=== PATIENT | female | born 1945 | race Caucasian/White ===

== ENCOUNTER → 2016-12-17 | Outpatient (CLI) | payer MEDICARE ==
[~2016-12-17] MED LIST: OMNIPAQUE 350 MG/ML, 100ML BOTTLE ONE
== END | disposition home or self-care (01) ==
LOC: CFH 11:14
PROVIDERS: ATTEND Obstetrics & Gynecology Maternal & Fetal Medicine
DX: J90 Pleural effusion, not elsewhere classified (principal); M51.04 Intervertebral disc disorders with myelopathy, thoracic region; N85.2 Hypertrophy of uterus; R59.9 Enlarged lymph nodes, unspecified; N28.1 Cyst of kidney, acquired; Z85.850 Personal history of malignant neoplasm of thyroid
CPT/HCPCS: 71260; 74177; 82565; Q9967

== ENCOUNTER 2017-01-09 12:32 | Inpatient (IN) | payer MEDICARE ==
[~2017-01-09] VITALS: Ht 162.6 cm; Wt 67.7 kg
[~2017-01-09 12:32] MED LIST changes: +ASPI-650 PO; +ATEN25TA PO; +ATOR40TA78 PO; +CALC1CAP8 PO; +CELE200C PO; +CHOL10002 PO; +CYAN1TAB29 PO; +FLEC100T PO; +GLUC1TAB35 PO; +KRIL1CAP PO; +LEVO125T PO; +LISI-167 PO; +LORA0.5T PO; +MULT-658 PO; +OMEP-110 PO; -OMNIPAQUE 350 MG/ML, 100ML BOTTLE ONE; +ONDA4TAB10 PO; +OXYC1TAB8 PO; +VITA400C43 PO
[2017-01-09] MEDS ORDERED: SODIUM CHLORIDE 0.9%, 250ML IVBOLUS ONE (13:30)
[2017-01-09] MEDS ORDERED: SODIUM CHLORIDE FLUSH 10ML SYR IVF ONE (13:30)
[2017-01-09 13:38] LABS: HEMATOCRIT 25.4 % (34.6-47.8); HEMOGLOBIN 8.3 g/dL (11.7-16.4); WHITE BLOOD COUNT 24.2 x10^3/uL (3.4-10)
[2017-01-09 13:48] LABS: BLOOD UREA NITROGEN 53 mg/dL (7-18)
[2017-01-09 13:55] LABS: ASPARTATE AMINO TRANSFERASE 968 U/L (15-37)
[2017-01-09 14:00] LABS: IS PT STATUS REG ER OR PRE ER? YES
[2017-01-09] MEDS ORDERED: CEFTRIAXONE PMX 1GM/50ML 50 ML IV ONE (14:00)
[2017-01-09 14:03] LABS: DIFF TOTAL CELLS COUNTED 100 CELL DIFF
[2017-01-09 14:06] LABS: ANISOCYTOSIS 1+; VERIFY COUNTS? YES
[2017-01-09 14:07] LABS: HYPOCHROMIA 1+; OVALOCYTES 1+; POIKILOCYTOSIS 1+
[2017-01-09 14:08] LABS: POLYCHROMASIA 2+
[2017-01-09] MEDS ORDERED: CEFTRIAXONE PMX 1GM/50ML 50 ML ONE (14:42)
[2017-01-09 16:29] VITALS: BP 110/65
[2017-01-09] MEDS ORDERED: LIDOCAINE 1%, 20ML ONE (16:51)
[2017-01-09] MEDS ORDERED: ONDANSETRON 2MG/ML, 2ML IVPush PRN (17:00)
[2017-01-09] MEDS ORDERED: ZOLPIDEM 5MG TABLET PO PRN (17:00)
[2017-01-09] MEDS ORDERED: hydrALAzine 20 MG/ML, 1ML IVPush PRN (17:00)
[2017-01-09] MEDS ORDERED: OXYcodone/APAP 7.5/325MG TABLET PO PRN (17:00)
[2017-01-09] MEDS ORDERED: BISACODYL 10 MG SUPP PR PRN (17:00)
[2017-01-09] MEDS ORDERED: DOCUSATE 100 MG CAPSULE PO PRN (17:00)
[2017-01-09] MEDS ORDERED: ONDANSETRON ODT 4 MG PO PRN (17:00)
[2017-01-09] MEDS ORDERED: POLYETHYLENE GLYCOL 17 GM PACKET PO PRN (17:00)
[2017-01-09 17:45] LABS: CYTOLOGY BODY FLUID RECD INTO PATHOLOGY; CYTOLOGY BODY FLUID SOURCE PLEURAL FLUID
[2017-01-09] MEDS: NS + 20MEQ KCL 1,000 ML IV SCH (17:45)
[2017-01-09] MEDS: HEPARIN 5,000 UNITS/ML, 1ML SQ SCH (17:46)
[2017-01-09] MEDS: AZITHROMYCIN 500 MG in SODIUM CHLORIDE 0.9% 250 ML IV SCH (17:46)
[2017-01-09 18:15] VITALS: BP 107/59
[2017-01-09 18:27] LABS: IS PT STATUS REG ER OR PRE ER? YES
[2017-01-09] MEDS: HYDROcodone/APAP 5/325 TABLET PO PRN (18:34)
[2017-01-09 19:54] VITALS: BP 98/62
[2017-01-09 19:57] VITALS: BP 90/58
[2017-01-09 20:02] VITALS: BP 96/61
[2017-01-09] MEDS: FLECAINIDE 100MG TABLET PO SCH (20:19)
[2017-01-09] MEDS: ATORVASTATIN 40 MG TABLET PO SCH (20:27)
[2017-01-09 20:33] LABS: POTASSIUM,URINE RANDOM 88 mmol/L
[2017-01-09 23:12] LABS: IS PT STATUS REG ER OR PRE ER? NO
[2017-01-10 01:11] VITALS: BP 107/66
[2017-01-10] MEDS: HEPARIN 5,000 UNITS/ML, 1ML SQ SCH ×2 (01:17→09:22)
[2017-01-10] MEDS: CEFTRIAXONE 1,000 MG in SODIUM CHLORIDE 0.9% 50 ML IV SCH ×2 (03:27→14:17)
[2017-01-10 05:13] LABS: HEMATOCRIT 23.8 % (34.6-47.8); HEMOGLOBIN 7.7 g/dL (11.7-16.4)
[2017-01-10 05:19] LABS: BLOOD UREA NITROGEN 47 mg/dL (7-18)
[2017-01-10] MEDS: NS + 20MEQ KCL 1,000 ML IV SCH ×2 (05:37→17:11)
[2017-01-10] MEDS: LEVOTHYROXINE 125 MCG TABLET PO SCH (05:38)
[2017-01-10 09:19] VITALS: BP 94/59
[2017-01-10] MEDS: PANTOPROZOLE 40MG TABLET PO SCH (09:21)
[2017-01-10] MEDS: MULTIVITAMIN 1 TABLET PO SCH (09:21)
[2017-01-10] MEDS: FLECAINIDE 100MG TABLET PO SCH ×2 (09:21→21:17)
[2017-01-10] MEDS: ASPIRIN 325 MG TABLET EC PO SCH (09:21)
[2017-01-10] MEDS: CHOLECALCIFEROL 1,000 UNIT TABLET PO SCH (09:21)
[2017-01-10] MEDS: HEPARIN 25,000 UNITS/500ML PMX 500 ML IV PRN (14:06)
[2017-01-10 14:25] VITALS: BP 107/66
[2017-01-10] MEDS: AZITHROMYCIN 500 MG in SODIUM CHLORIDE 0.9% 250 ML IV SCH (16:55)
[2017-01-10 19:59] VITALS: BP 100/68
[2017-01-10] MEDS: ATORVASTATIN 40 MG TABLET PO SCH (21:18)
[2017-01-10] MEDS: HEPARIN 5,000 UNITS/ML, 1ML IV PRN (21:21)
[2017-01-11 01:45] VITALS: BP 104/55
[2017-01-11] MEDS ORDERED: CEFTRIAXONE 1,000 MG in DEXTROSE 5% 50 ML IV SCH (03:00)
[2017-01-11] MEDS: NS + 20MEQ KCL 1,000 ML IV SCH ×2 (03:20→14:33)
[2017-01-11] MEDS: LEVOTHYROXINE 125 MCG TABLET PO SCH (06:14)
[2017-01-11 07:22] VITALS: BP 129/76
[2017-01-11] MEDS: ASPIRIN 325 MG TABLET EC PO SCH (08:16)
[2017-01-11] MEDS: CHOLECALCIFEROL 1,000 UNIT TABLET PO SCH (08:16)
[2017-01-11] MEDS: PANTOPROZOLE 40MG TABLET PO SCH (08:16)
[2017-01-11] MEDS: FLECAINIDE 100MG TABLET PO SCH ×2 (08:16→20:46)
[2017-01-11] MEDS: MULTIVITAMIN 1 TABLET PO SCH (08:16)
[2017-01-11] MEDS ORDERED: FUROSEMIDE 40 MG/4 ML ONE (09:05)
[2017-01-11 09:10] VITALS: BP 123/77
[2017-01-11] MEDS ORDERED: FUROSEMIDE 40 MG/4 ML IV ONE (09:30)
[2017-01-11 09:51] LABS: BLOOD UREA NITROGEN 32 mg/dL (7-18)
[2017-01-11 10:03] LABS: HEMATOCRIT 28.6 % (34.6-47.8); HEMOGLOBIN 9.1 g/dL (11.7-16.4); WHITE BLOOD COUNT 19.3 x10^3/uL (3.4-10)
[2017-01-11 10:39] LABS: DIFF TOTAL CELLS COUNTED 100 CELL DIFF
[2017-01-11 10:40] LABS: ANISOCYTOSIS 1+; HYPOCHROMIA 1+; LARGE PLATELETS 1+; OVALOCYTES 1+; POIKILOCYTOSIS 1+; VERIFY COUNTS? YES
[2017-01-11] MEDS ORDERED: VANCOMYCIN 1,400 MG in SODIUM CHLORIDE 0.9% 250 ML IV SCH (12:30)
[2017-01-11] MEDS ORDERED: VANCOMYCIN PER PHARMACY MC PRN (12:30)
[2017-01-11] MEDS ORDERED: PHARMACOKINETIC CONSULTATION MC ONE (12:30)
[2017-01-11] MEDS ORDERED: PHARMACOKINETIC MONITORING MC PRN (12:30)
[2017-01-11] MEDS ORDERED: LIDOCAINE 2%, 20ML ONE (12:33)
[2017-01-11 13:54] VITALS: BP 99/60
[2017-01-11] MEDS: HEPARIN 25,000 UNITS/500ML PMX 500 ML IV PRN (14:36)
[2017-01-11 19:18] VITALS: BP 149/79
[2017-01-11] MEDS: ATORVASTATIN 40 MG TABLET PO SCH (20:46)
[2017-01-11] MEDS: LORazepam 0.5MG TABLET PO PRN (20:46)
[2017-01-12 00:56] VITALS: BP 120/67
[2017-01-12] MEDS: NS + 20MEQ KCL 1,000 ML IV SCH (02:58)
[2017-01-12] MEDS: LEVOTHYROXINE 125 MCG TABLET PO SCH (05:10)
[2017-01-12 05:42] LABS: HEMATOCRIT 29.9 % (34.6-47.8); HEMOGLOBIN 9.6 g/dL (11.7-16.4); WHITE BLOOD COUNT 20.3 x10^3/uL (3.4-10)
[2017-01-12 05:54] LABS: BLOOD UREA NITROGEN 25 mg/dL (7-18)
[2017-01-12 06:17] LABS: DIFF TOTAL CELLS COUNTED 100 CELL DIFF
[2017-01-12 06:18] LABS: ANISOCYTOSIS 1+; HYPOCHROMIA 1+; VERIFY COUNTS? YES
[2017-01-12 06:38] VITALS: BP 149/77
[2017-01-12] MEDS: ASPIRIN 325 MG TABLET EC PO SCH (09:00)
[2017-01-12] MEDS: CHOLECALCIFEROL 1,000 UNIT TABLET PO SCH (09:00)
[2017-01-12] MEDS: MULTIVITAMIN 1 TABLET PO SCH (09:00)
[2017-01-12] MEDS: PANTOPROZOLE 40MG TABLET PO SCH (09:00)
[2017-01-12] MEDS: FLECAINIDE 100MG TABLET PO SCH ×2 (09:01→20:20)
[2017-01-12] MEDS ORDERED: OMNIPAQUE 350 MG/ML, 100ML BOTTLE ONE (10:59)
[2017-01-12] MEDS: AZTREONAM IV SCH ×2 (12:09→20:20)
[2017-01-12] MEDS: DEXTROSE 5% IV SCH ×2 (12:09→20:20)
[2017-01-12] MEDS: SODIUM CHLORIDE 0.9% 1,000 ML IV SCH (12:10)
[2017-01-12 12:19] VITALS: BP 132/87
[2017-01-12] MEDS: VANCOMYCIN 1,200 MG in SODIUM CHLORIDE 0.9% 250 ML IV SCH (13:55)
[2017-01-12] MEDS ORDERED: LIDOCAINE 2%, 20ML ONE (14:21)
[2017-01-12] MEDS: HEPARIN 25,000 UNITS/500ML PMX 500 ML IV PRN (17:42)
[2017-01-12 19:08] VITALS: BP 123/71
[2017-01-12] MEDS: ATORVASTATIN 40 MG TABLET PO SCH (20:20)
[2017-01-12] MEDS: LORazepam 0.5MG TABLET PO PRN (20:27)
[2017-01-12] MEDS: HYDROcodone/APAP 5/325 TABLET PO PRN (20:59)
[2017-01-12] MEDS: ONDANSETRON ODT 4 MG PO PRN (20:59)
[2017-01-13 01:08] VITALS: BP 169/84
[2017-01-13] MEDS: HYDROcodone/APAP 5/325 TABLET PO PRN (03:10)
[2017-01-13] MEDS: ONDANSETRON ODT 4 MG PO PRN (03:15)
[2017-01-13] MEDS: SODIUM CHLORIDE 0.9% 1,000 ML IV SCH ×2 (04:09→19:50)
[2017-01-13] MEDS: DEXTROSE 5% IV SCH ×3 (04:09→20:34)
[2017-01-13] MEDS: AZTREONAM IV SCH ×3 (04:09→20:34)
[2017-01-13 05:40] LABS: HEMATOCRIT 30.1 % (34.6-47.8); HEMOGLOBIN 9.7 g/dL (11.7-16.4); WHITE BLOOD COUNT 16.5 x10^3/uL (3.4-10)
[2017-01-13 05:48] LABS: BLOOD UREA NITROGEN 17 mg/dL (7-18)
[2017-01-13] MEDS: HEPARIN 5,000 UNITS/ML, 1ML IV PRN (06:06)
[2017-01-13] MEDS: PANTOPROZOLE 40MG TABLET PO SCH (07:30)
[2017-01-13 07:35] VITALS: BP 145/85
[2017-01-13] MEDS: LEVOTHYROXINE 125 MCG TABLET PO SCH (08:00)
[2017-01-13] MEDS ORDERED: CETACAINE 50ML TP ONE (08:00)
[2017-01-13] MEDS: FLECAINIDE 100MG TABLET PO SCH ×2 (08:30→20:25)
[2017-01-13] MEDS: MULTIVITAMIN 1 TABLET PO SCH (09:00)
[2017-01-13] MEDS ORDERED: FAMOTIDINE 20 MG/2 ML IVPush SCH (09:00)
[2017-01-13] MEDS: CHOLECALCIFEROL 1,000 UNIT TABLET PO SCH (09:00)
[2017-01-13 14:30] VITALS: BP 165/91
[2017-01-13] MEDS: VANCOMYCIN 1,200 MG in SODIUM CHLORIDE 0.9% 250 ML IV SCH (14:52)
[2017-01-13 19:01] VITALS: BP 160/89
[2017-01-13] MEDS: HEPARIN 25,000 UNITS/500ML PMX 500 ML IV PRN (19:46)
[2017-01-13] MEDS: ATORVASTATIN 40 MG TABLET PO SCH (20:24)
[2017-01-13] MEDS: FAMOTIDINE 20 MG TABLET PO SCH (20:35)
[2017-01-14 00:26] VITALS: BP 151/83
[2017-01-14] MEDS: DEXTROSE 5% IV SCH ×3 (04:29→20:25)
[2017-01-14] MEDS: AZTREONAM IV SCH ×3 (04:29→20:25)
[2017-01-14 04:56] LABS: HEMATOCRIT 31.5 % (34.6-47.8); HEMOGLOBIN 10.1 g/dL (11.7-16.4); WHITE BLOOD COUNT 15.8 x10^3/uL (3.4-10)
[2017-01-14 05:07] LABS: BLOOD UREA NITROGEN 14 mg/dL (7-18)
[2017-01-14] MEDS: LEVOTHYROXINE 125 MCG TABLET PO SCH (05:46)
[2017-01-14] MEDS: PANTOPROZOLE 40MG TABLET PO SCH (07:30)
[2017-01-14 08:05] VITALS: BP 154/83
[2017-01-14] MEDS: FLECAINIDE 100MG TABLET PO SCH ×2 (08:30→20:30)
[2017-01-14] MEDS: MULTIVITAMIN 1 TABLET PO SCH (09:00)
[2017-01-14] MEDS: CHOLECALCIFEROL 1,000 UNIT TABLET PO SCH (09:00)
[2017-01-14] MEDS: FAMOTIDINE 20 MG TABLET PO SCH (09:00)
[2017-01-14] MEDS: SODIUM CHLORIDE 0.9% 1,000 ML IV SCH (09:05)
[2017-01-14] MEDS: VANCOMYCIN 1,200 MG in SODIUM CHLORIDE 0.9% 250 ML IV SCH (14:05)
[2017-01-14 14:30] VITALS: BP 127/76
[2017-01-14 19:04] VITALS: BP 146/81
[2017-01-14] MEDS: HEPARIN 25,000 UNITS/500ML PMX 500 ML IV PRN (20:27)
[2017-01-14] MEDS: ATORVASTATIN 40 MG TABLET PO SCH (20:32)
[2017-01-14] MEDS ORDERED: FAMOTIDINE 20 MG TABLET PO SCH (21:00)
[2017-01-14 23:16] VITALS: BP 119/70
[2017-01-14] MEDS ORDERED: FILTER 0.22 MICRON IV PRN (23:30)
[2017-01-14] MEDS ORDERED: AMIODARONE 150 MG in DEXTROSE 5% 100 ML IV ONE (23:30)
[2017-01-14] MEDS: AMIODARONE 900 MG in DEXTROSE 5% 482 ML IV PRN (23:42)
[2017-01-14 23:52] VITALS: BP 101/52
[2017-01-15 00:29] VITALS: BP 104/62
[2017-01-15 01:03] VITALS: BP 111/68
[2017-01-15 03:05] LABS: HEMATOCRIT 28.6 % (34.6-47.8); HEMOGLOBIN 9.2 g/dL (11.7-16.4); WHITE BLOOD COUNT 13.9 x10^3/uL (3.4-10)
[2017-01-15 03:13] LABS: BLOOD UREA NITROGEN 12 mg/dL (7-18)
[2017-01-15] MEDS: SODIUM CHLORIDE 0.9% 1,000 ML IV SCH ×2 (03:42→20:00)
[2017-01-15] MEDS: AZTREONAM IV SCH ×3 (03:43→21:30)
[2017-01-15] MEDS: DEXTROSE 5% IV SCH ×3 (03:43→21:30)
[2017-01-15] MEDS: LEVOTHYROXINE 125 MCG TABLET PO SCH (06:00)
[2017-01-15] MEDS: FLECAINIDE 100MG TABLET PO SCH ×2 (08:05→20:30)
[2017-01-15] MEDS: MULTIVITAMIN 1 TABLET PO SCH (08:05)
[2017-01-15] MEDS: CHOLECALCIFEROL 1,000 UNIT TABLET PO SCH (08:05)
[2017-01-15] MEDS: PANTOPRAZOLE 40 MG IV IVPush SCH (09:38)
[2017-01-15 09:58] VITALS: BP 101/71
[2017-01-15 13:53] VITALS: BP 114/78
[2017-01-15] MEDS ORDERED: LEVOTHYROXINE 25 MCG TABLET PO SCH (14:00)
[2017-01-15] MEDS ORDERED: AMIODARONE 150 MG in DEXTROSE 5% 100 ML IV ONE (14:30)
[2017-01-15] MEDS ORDERED: SODIUM CHLORIDE 0.9%, 250ML IVBOLUS ONE (16:30)
[2017-01-15] MEDS: LEVOTHYROXINE 100 MCG INJ IVPush SCH (17:11)
[2017-01-15] MEDS: VANCOMYCIN 1,200 MG in SODIUM CHLORIDE 0.9% 250 ML IV SCH (17:15)
[2017-01-15] MEDS ORDERED: FILTER 0.22 MICRON IV PRN (18:30)
[2017-01-15] MEDS: HEPARIN 25,000 UNITS/500ML PMX 500 ML IV PRN (18:37)
[2017-01-15] MEDS: AMIODARONE 900 MG in DEXTROSE 5% 482 ML IV PRN (18:38)
[2017-01-15 20:38] VITALS: BP 162/84
[2017-01-15] MEDS: ATORVASTATIN 40 MG TABLET PO SCH (21:00)
[2017-01-16 00:38] VITALS: BP 144/82
[2017-01-16 05:08] LABS: WHITE BLOOD COUNT 11.3 x10^3/uL (3.4-10)
[2017-01-16 05:20] LABS: BLOOD UREA NITROGEN 11 mg/dL (7-18)
[2017-01-16] MEDS: LEVOTHYROXINE 125 MCG TABLET PO SCH (06:00)
[2017-01-16] MEDS: AZTREONAM IV SCH ×3 (06:45→22:34)
[2017-01-16] MEDS: DEXTROSE 5% IV SCH ×3 (06:45→22:34)
[2017-01-16] MEDS ORDERED: POTASSIUM CHLORIDE 40 MEQ in SODIUM CHLORIDE 0.9% 100 ML IV ONE (07:30)
[2017-01-16 08:11] VITALS: BP 153/77
[2017-01-16] MEDS: FLECAINIDE 100MG TABLET PO SCH (08:30)
[2017-01-16] MEDS: PANTOPRAZOLE 40 MG IV IVPush SCH (09:00)
[2017-01-16] MEDS ORDERED: LEVOTHYROXINE 100 MCG INJ IVPush SCH (09:00)
[2017-01-16] MEDS: CHOLECALCIFEROL 1,000 UNIT TABLET PO SCH (09:00)
[2017-01-16] MEDS: LEVOTHYROXINE 100 MCG INJ IVPush SCH (09:00)
[2017-01-16] MEDS: MULTIVITAMIN 1 TABLET PO SCH (09:00)
[2017-01-16] MEDS ORDERED: ALBUMIN HUMAN 25% 100 ML IV ONE (12:30)
[2017-01-16] MEDS ORDERED: FUROSEMIDE 20 MG/2 ML IV ONE (12:30)
[2017-01-16 14:37] VITALS: BP 166/92
[2017-01-16] MEDS: SODIUM CHLORIDE 0.9% 1,000 ML IV SCH (15:12)
[2017-01-16] MEDS: VANCOMYCIN 1,200 MG in SODIUM CHLORIDE 0.9% 250 ML IV SCH (16:08)
[2017-01-16 19:40] VITALS: BP 150/85
[2017-01-16] MEDS: HEPARIN 25,000 UNITS/500ML PMX 500 ML IV PRN (21:29)
[2017-01-16] MEDS: ATORVASTATIN 40 MG TABLET PO SCH (22:51)
[2017-01-17] MEDS: POTASSIUM CHLORIDE 20 MEQ TAB.ER.PRT PO SCH ×2 (01:08→09:50)
[2017-01-17 01:12] VITALS: BP 156/85
[2017-01-17] MEDS: AMIODARONE 900 MG in DEXTROSE 5% 482 ML IV PRN (03:58)
[2017-01-17] MEDS: DEXTROSE 5% IV SCH ×3 (06:17→21:20)
[2017-01-17] MEDS: AZTREONAM IV SCH ×3 (06:17→21:20)
[2017-01-17] MEDS: LEVOTHYROXINE 125 MCG TABLET PO SCH (06:17)
[2017-01-17 06:32] LABS: HEMATOCRIT 27.6 % (34.6-47.8)
[2017-01-17 06:38] VITALS: BP 166/78
[2017-01-17 06:44] LABS: BLOOD UREA NITROGEN 8 mg/dL (7-18)
[2017-01-17] MEDS: PANTOPRAZOLE 40 MG IV IVPush SCH (09:49)
[2017-01-17] MEDS: MULTIVITAMIN 1 TABLET PO SCH (09:51)
[2017-01-17] MEDS: CHOLECALCIFEROL 1,000 UNIT TABLET PO SCH (09:51)
[2017-01-17] MEDS: SODIUM CHLORIDE 0.9% 1,000 ML IV SCH (09:53)
[2017-01-17 13:38] VITALS: BP 151/82
[2017-01-17] MEDS: VANCOMYCIN 1,200 MG in SODIUM CHLORIDE 0.9% 250 ML IV SCH (16:28)
[2017-01-17 19:30] VITALS: BP 164/83
[2017-01-17] MEDS: ATORVASTATIN 40 MG TABLET PO SCH (21:20)
[2017-01-17] MEDS: HEPARIN 25,000 UNITS/500ML PMX 500 ML IV PRN (23:40)
[2017-01-18 01:30] VITALS: BP 147/79
[2017-01-18] MEDS: SODIUM CHLORIDE 0.9% 1,000 ML IV SCH (02:27)
[2017-01-18] MEDS: LEVOTHYROXINE 125 MCG TABLET PO SCH (05:12)
[2017-01-18] MEDS: DEXTROSE 5% IV SCH ×3 (05:14→22:34)
[2017-01-18] MEDS: AZTREONAM IV SCH ×3 (05:14→22:34)
[2017-01-18 05:36] LABS: HEMATOCRIT 27.8 % (34.6-47.8); HEMOGLOBIN 8.8 g/dL (11.7-16.4)
[2017-01-18 05:45] LABS: BLOOD UREA NITROGEN 6 mg/dL (7-18)
[2017-01-18 06:57] VITALS: BP 146/79
[2017-01-18] MEDS ORDERED: FUROSEMIDE 20 MG/2 ML IV ONE (09:30)
[2017-01-18] MEDS ORDERED: MAGNESIUM SULFATE 1 GM/2 ML IVPush ONE (09:30)
[2017-01-18] MEDS ORDERED: MAGNESIUM SULFATE 1 GM in SODIUM CHLORIDE 0.9% 50 ML IV ONE (09:30)
[2017-01-18] MEDS ORDERED: ALBUMIN HUMAN 25% 100 ML IV ONE (09:30)
[2017-01-18] MEDS: CHOLECALCIFEROL 1,000 UNIT TABLET PO SCH (10:41)
[2017-01-18] MEDS: MULTIVITAMIN 1 TABLET PO SCH (10:41)
[2017-01-18] MEDS: PANTOPRAZOLE 40 MG IV IVPush SCH (10:41)
[2017-01-18 12:06] VITALS: BP 148/88
[2017-01-18] MEDS: ALBUMIN HUMAN 25% 100 ML IV SCH (17:09)
[2017-01-18] MEDS: FUROSEMIDE 20 MG/2 ML IV SCH (17:09)
[2017-01-18] MEDS: VANCOMYCIN 1,200 MG in SODIUM CHLORIDE 0.9% 250 ML IV SCH (17:09)
[2017-01-18 18:47] VITALS: BP 144/85
[2017-01-18] MEDS: ATORVASTATIN 40 MG TABLET PO SCH (20:16)
[2017-01-19] MEDS ORDERED: AMIODARONE 150 MG in DEXTROSE 5% 100 ML IV ONE ×2 (01:00→09:30)
[2017-01-19] MEDS ORDERED: FILTER 0.22 MICRON IV PRN (01:00)
[2017-01-19] MEDS: AMIODARONE 900 MG in DEXTROSE 5% 482 ML IV PRN (01:56)
[2017-01-19] MEDS: HEPARIN 25,000 UNITS/500ML PMX 500 ML IV PRN (01:57)
[2017-01-19 03:35] VITALS: BP 138/82
[2017-01-19 05:55] LABS: HEMATOCRIT 25.9 % (34.6-47.8); HEMOGLOBIN 8.4 g/dL (11.7-16.4); WHITE BLOOD COUNT 9.4 x10^3/uL (3.4-10)
[2017-01-19 06:12] LABS: ASPARTATE AMINO TRANSFERASE 45 U/L (15-37); BLOOD UREA NITROGEN 6 mg/dL (7-18)
[2017-01-19] MEDS: LEVOTHYROXINE 125 MCG TABLET PO SCH (06:36)
[2017-01-19] MEDS: DEXTROSE 5% IV SCH ×3 (06:37→21:39)
[2017-01-19] MEDS: AZTREONAM IV SCH ×3 (06:37→21:39)
[2017-01-19] MEDS: ALBUMIN HUMAN 25% 100 ML IV SCH (06:40)
[2017-01-19] MEDS: FUROSEMIDE 20 MG/2 ML IV SCH (07:16)
[2017-01-19 07:40] VITALS: BP 146/77
[2017-01-19] MEDS ORDERED: POTASSIUM CHLORIDE 20 MEQ TAB.ER.PRT PO ONE (09:00)
[2017-01-19] MEDS ORDERED: MAGNESIUM SULFATE PMX 2GM/50ML 50 ML IV ONE (09:00)
[2017-01-19] MEDS ORDERED: AMIODARONE 900 MG in DEXTROSE 5% 482 ML IV PRN (09:00)
[2017-01-19 09:37] VITALS: BP 146/92
[2017-01-19] MEDS: CHOLECALCIFEROL 1,000 UNIT TABLET PO SCH (09:39)
[2017-01-19] MEDS: MULTIVITAMIN 1 TABLET PO SCH (09:39)
[2017-01-19] MEDS: PANTOPROZOLE 40MG TABLET PO SCH (09:39)
[2017-01-19] MEDS ORDERED: FILTER 0.22 MICRON IV ONE (10:00)
[2017-01-19 14:33] VITALS: BP 159/97
[2017-01-19] MEDS: VANCOMYCIN 1,200 MG in SODIUM CHLORIDE 0.9% 250 ML IV SCH (15:42)
[2017-01-19 20:25] VITALS: BP 178/107
[2017-01-19] MEDS ORDERED: SODIUM CHLORIDE NASAL SPRAY 45ML BOTTLE NAS PRN (21:30)
[2017-01-19] MEDS: ATORVASTATIN 40 MG TABLET PO SCH (21:39)
[2017-01-20 02:42] VITALS: BP 138/94
[2017-01-20] MEDS: AMIODARONE 900 MG in DEXTROSE 5% 482 ML IV PRN (02:48)
[2017-01-20] MEDS ORDERED: FILTER 0.22 MICRON IV PRN (03:00)
[2017-01-20] MEDS: HEPARIN 25,000 UNITS/500ML PMX 500 ML IV PRN (04:22)
[2017-01-20 05:09] LABS: HEMATOCRIT 25.1 % (34.6-47.8); WHITE BLOOD COUNT 10.4 x10^3/uL (3.4-10)
[2017-01-20 05:20] LABS: BLOOD UREA NITROGEN 5 mg/dL (7-18)
[2017-01-20] MEDS: AZTREONAM IV SCH ×3 (06:24→22:35)
[2017-01-20] MEDS: DEXTROSE 5% IV SCH ×3 (06:24→22:35)
[2017-01-20] MEDS: LEVOTHYROXINE 125 MCG TABLET PO SCH (06:25)
[2017-01-20] MEDS: HEPARIN 5,000 UNITS/ML, 1ML IV PRN (07:04)
[2017-01-20 08:15] VITALS: BP 145/95
[2017-01-20] MEDS ORDERED: AMIODARONE 50 MG/ML, 3ML IVPush ONE (09:00)
[2017-01-20] MEDS: PANTOPROZOLE 40MG TABLET PO SCH (09:27)
[2017-01-20] MEDS: MULTIVITAMIN 1 TABLET PO SCH (09:27)
[2017-01-20] MEDS: CHOLECALCIFEROL 1,000 UNIT TABLET PO SCH (09:27)
[2017-01-20] MEDS ORDERED: AMIODARONE 150 MG in DEXTROSE 5% 100 ML IV ONE (09:30)
[2017-01-20 09:58] VITALS: BP 121/82
[2017-01-20 13:05] VITALS: BP 127/75
[2017-01-20] MEDS: VANCOMYCIN 1,200 MG in SODIUM CHLORIDE 0.9% 250 ML IV SCH (15:34)
[2017-01-20] MEDS ORDERED: ALBUMIN HUMAN 25% 100 ML IV ONE (17:00)
[2017-01-20] MEDS ORDERED: FUROSEMIDE 20 MG/2 ML IV ONE (17:20)
[2017-01-20] MEDS: POTASSIUM CHLORIDE 20 MEQ TAB.ER.PRT PO SCH (17:47)
[2017-01-20 19:46] VITALS: BP 136/80
[2017-01-20] MEDS: AMIODARONE 200 MG TABLET PO SCH (22:35)
[2017-01-20] MEDS: ATORVASTATIN 40 MG TABLET PO SCH (22:35)
[2017-01-21] VITALS (9 sets, daily range): BP systolic 146–177; BP diastolic 72–82
[2017-01-21 03:40] LABS: HEMATOCRIT 23.9 % (34.6-47.8); HEMOGLOBIN 7.6 g/dL (11.7-16.4); WHITE BLOOD COUNT 12.2 x10^3/uL (3.4-10)
[2017-01-21 03:51] LABS: BLOOD UREA NITROGEN 6 mg/dL (7-18)
[2017-01-21] MEDS: HEPARIN 25,000 UNITS/500ML PMX 500 ML IV PRN (04:54)
[2017-01-21] MEDS: LEVOTHYROXINE 125 MCG TABLET PO SCH (05:02)
[2017-01-21] MEDS: AZTREONAM IV SCH ×3 (05:02→21:46)
[2017-01-21] MEDS: DEXTROSE 5% IV SCH ×3 (05:02→21:46)
[2017-01-21] MEDS ORDERED: ALBUMIN HUMAN 25% 100 ML IV ONE ×2 (08:00→13:00)
[2017-01-21] MEDS ORDERED: FUROSEMIDE 20 MG/2 ML IV ONE ×3 (10:00→21:00)
[2017-01-21] MEDS: MULTIVITAMIN 1 TABLET PO SCH (10:03)
[2017-01-21] MEDS: PANTOPROZOLE 40MG TABLET PO SCH (10:03)
[2017-01-21] MEDS: CHOLECALCIFEROL 1,000 UNIT TABLET PO SCH (10:03)
[2017-01-21] MEDS: POTASSIUM CHLORIDE 20 MEQ TAB.ER.PRT PO SCH ×2 (10:03→21:14)
[2017-01-21] MEDS: AMIODARONE 200 MG TABLET PO SCH ×2 (10:03→21:16)
[2017-01-21 10:17] LABS: HEMATOCRIT 23.3 % (34.6-47.8); HEMOGLOBIN 7.7 g/dL (11.7-16.4)
[2017-01-21] MEDS ORDERED: MAGNESIUM SULFATE PMX 2GM/50ML 50 ML IV ONE (11:00)
[2017-01-21] MEDS: VANCOMYCIN 1,200 MG in SODIUM CHLORIDE 0.9% 250 ML IV SCH (15:25)
[2017-01-21] MEDS: ATORVASTATIN 40 MG TABLET PO SCH (21:16)
[2017-01-22 01:50] VITALS: BP 160/76
[2017-01-22] MEDS: AZTREONAM IV SCH ×3 (04:58→20:59)
[2017-01-22] MEDS: DEXTROSE 5% IV SCH ×3 (04:58→20:59)
[2017-01-22] MEDS: LEVOTHYROXINE 125 MCG TABLET PO SCH (05:01)
[2017-01-22 05:17] LABS: BLOOD UREA NITROGEN 6 mg/dL (7-18)
[2017-01-22 05:41] LABS: HEMOGLOBIN 9.1 g/dL (11.7-16.4); WHITE BLOOD COUNT 10.9 x10^3/uL (3.4-10)
[2017-01-22 08:19] VITALS: BP 161/78
[2017-01-22] MEDS: AMIODARONE 200 MG TABLET PO SCH ×2 (09:45→20:59)
[2017-01-22] MEDS: CHOLECALCIFEROL 1,000 UNIT TABLET PO SCH (09:45)
[2017-01-22] MEDS: PANTOPROZOLE 40MG TABLET PO SCH (09:45)
[2017-01-22] MEDS: POTASSIUM CHLORIDE 20 MEQ TAB.ER.PRT PO SCH ×2 (09:45→20:59)
[2017-01-22] MEDS: MULTIVITAMIN 1 TABLET PO SCH (09:45)
[2017-01-22] MEDS ORDERED: ATENOLOL 25 MG TABLET PO SCH (11:00)
[2017-01-22] MEDS ORDERED: LIDOCAINE 2%, 20ML ONE (12:39)
[2017-01-22 12:54] VITALS: BP 153/82
[2017-01-22] MEDS: LISINOPRIL 10 MG TABLET PO SCH (14:26)
[2017-01-22] MEDS: VANCOMYCIN 1,200 MG in SODIUM CHLORIDE 0.9% 250 ML IV SCH (17:15)
[2017-01-22 17:25] LABS: TOTAL IRON BINDING CAPACITY 131 mcg/dL (250-450)
[2017-01-22 17:51] LABS: FERRITIN 611.4 ng/mL (8-252); TRANSFERRIN 106 mg/dL (200-360)
[2017-01-22 20:31] VITALS: BP 109/66
[2017-01-22] MEDS: ATORVASTATIN 40 MG TABLET PO SCH (20:59)
[2017-01-23 01:38] VITALS: BP 128/65
[2017-01-23] MEDS ORDERED: FUROSEMIDE 40 MG/4 ML IV ONE ×2 (03:00→09:30)
[2017-01-23 03:05] LABS: ABG COLLECTION SITE RIGHT RADIAL; COLLATERAL CIRCULATION TESTING NORMAL
[2017-01-23 05:59] LABS: HEMATOCRIT 28.2 % (34.6-47.8); HEMOGLOBIN 9.1 g/dL (11.7-16.4); WHITE BLOOD COUNT 9.9 x10^3/uL (3.4-10)
[2017-01-23 06:05] LABS: BLOOD UREA NITROGEN 10 mg/dL (7-18)
[2017-01-23] MEDS: AZTREONAM IV SCH ×3 (06:08→23:52)
[2017-01-23] MEDS: DEXTROSE 5% IV SCH ×3 (06:08→23:52)
[2017-01-23] MEDS: LEVOTHYROXINE 125 MCG TABLET PO SCH (06:13)
[2017-01-23 06:30] LABS: DIFF TOTAL CELLS COUNTED 100 CELL DIFF
[2017-01-23 06:45] LABS: ANISOCYTOSIS 1+; HYPOCHROMIA 1+; POIKILOCYTOSIS 1+
[2017-01-23 06:47] LABS: VERIFY COUNTS? YES
[2017-01-23 08:00] VITALS: BP 120/72
[2017-01-23] MEDS: ATENOLOL 50 MG TABLET PO SCH (09:00)
[2017-01-23] MEDS: POTASSIUM CHLORIDE 20 MEQ TAB.ER.PRT PO SCH ×2 (09:12→17:13)
[2017-01-23] MEDS: PANTOPROZOLE 40MG TABLET PO SCH (09:13)
[2017-01-23] MEDS: MULTIVITAMIN 1 TABLET PO SCH (09:13)
[2017-01-23] MEDS: AMIODARONE 200 MG TABLET PO SCH (09:13)
[2017-01-23] MEDS: CHOLECALCIFEROL 1,000 UNIT TABLET PO SCH (09:14)
[2017-01-23] MEDS: LISINOPRIL 10 MG TABLET PO SCH (09:19)
[2017-01-23 09:21] VITALS: BP 114/59
[2017-01-23] MEDS ORDERED: LIDOCAINE 1%, 20ML ONE (11:08)
[2017-01-23 12:01] LABS: CYTOLOGY BODY FLUID RECD INTO PATHOLOGY; CYTOLOGY BODY FLUID SOURCE THORACIC FLUID
[2017-01-23 16:00] VITALS: BP 133/62
[2017-01-23] MEDS: VANCOMYCIN 1,200 MG in SODIUM CHLORIDE 0.9% 250 ML IV SCH (17:14)
[2017-01-23 19:37] VITALS: BP 105/64
[2017-01-23] MEDS: ATORVASTATIN 40 MG TABLET PO SCH (20:51)
[2017-01-24 01:34] VITALS: BP 94/54
[2017-01-24 04:32] LABS: BLOOD UREA NITROGEN 13 mg/dL (7-18)
[2017-01-24 04:36] LABS: ASPARTATE AMINO TRANSFERASE 26 U/L (15-37)
[2017-01-24 06:09] LABS: HEMATOCRIT 28.2 % (34.6-47.8); HEMOGLOBIN 9.1 g/dL (11.7-16.4); WHITE BLOOD COUNT 10.4 x10^3/uL (3.4-10)
[2017-01-24 07:31] VITALS: BP 113/64
[2017-01-24] MEDS: POTASSIUM CHLORIDE 20 MEQ TAB.ER.PRT PO SCH ×3 (08:00→16:07)
[2017-01-24] MEDS: LISINOPRIL 10 MG TABLET PO SCH (09:00)
[2017-01-24] MEDS: AMIODARONE 200 MG TABLET PO SCH (09:59)
[2017-01-24] MEDS: ATENOLOL 50 MG TABLET PO SCH (09:59)
[2017-01-24] MEDS: DEXTROSE 5% IV SCH ×2 (10:02→17:47)
[2017-01-24] MEDS: AZTREONAM IV SCH ×2 (10:02→17:47)
[2017-01-24 14:00] VITALS: BP 105/66
[2017-01-24] MEDS ORDERED: LIDOCAINE GEL 2%, 5ML ONE (14:00)
[2017-01-24] MEDS ORDERED: LIDOCAINE 1%, 20ML ONE (14:00)
[2017-01-24] MEDS ORDERED: LIDOCAINE 4% TOPICAL SOLUTION 50 ML ONE (14:00)
[2017-01-24] MEDS ORDERED: AMIODARONE 150 MG in DEXTROSE 5% 100 ML IV ONE (15:30)
[2017-01-24] MEDS ORDERED: AMIODARONE 900 MG in DEXTROSE 5% 482 ML IV PRN (15:30)
[2017-01-24] MEDS ORDERED: FILTER 0.22 MICRON FOR AMIODARONE IV PRN (15:30)
[2017-01-24] MEDS: AMIODARONE 900 MG in DEXTROSE 5% 482 ML IV PRN (15:47)
[2017-01-24] MEDS: PANTOPROZOLE 40MG TABLET PO SCH (16:02)
[2017-01-24] MEDS: LEVOTHYROXINE 150 MCG TABLET PO SCH (16:03)
[2017-01-24] MEDS: MULTIVITAMIN 1 TABLET PO SCH (16:03)
[2017-01-24] MEDS: CHOLECALCIFEROL 1,000 UNIT TABLET PO SCH (16:03)
[2017-01-24] MEDS: VANCOMYCIN 1,200 MG in SODIUM CHLORIDE 0.9% 250 ML IV SCH (18:33)
[2017-01-24 18:58] VITALS: BP 99/59
[2017-01-24] MEDS: ATORVASTATIN 40 MG TABLET PO SCH (19:39)
[2017-01-25] MEDS: DEXTROSE 5% IV SCH ×3 (02:15→21:25)
[2017-01-25] MEDS: AZTREONAM IV SCH ×3 (02:15→21:25)
[2017-01-25 02:30] VITALS: BP 113/69
[2017-01-25] MEDS: LEVOTHYROXINE 150 MCG TABLET PO SCH (04:03)
[2017-01-25 04:17] LABS: HEMATOCRIT 26.4 % (34.6-47.8); HEMOGLOBIN 8.6 g/dL (11.7-16.4)
[2017-01-25 04:21] LABS: BLOOD UREA NITROGEN 14 mg/dL (7-18)
[2017-01-25 06:43] VITALS: BP 119/67
[2017-01-25] MEDS: POTASSIUM CHLORIDE 20 MEQ TAB.ER.PRT PO SCH ×3 (08:00→17:10)
[2017-01-25] MEDS: ATENOLOL 50 MG TABLET PO SCH (08:50)
[2017-01-25] MEDS: LISINOPRIL 10 MG TABLET PO SCH (09:00)
[2017-01-25] MEDS ORDERED: MIDAZOLAM 1 MG/ML, 5ML ONE (09:25)
[2017-01-25] MEDS ORDERED: FENTANYL PF 100 MCG/2ML ONE (09:25)
[2017-01-25] MEDS: AMIODARONE 900 MG in DEXTROSE 5% 482 ML IV PRN (09:52)
[2017-01-25] MEDS ORDERED: ALBUTEROL SULFATE 2.5 MG/3 ML ONE (10:46)
[2017-01-25] MEDS ORDERED: ALBUTEROL SULFATE 2.5 MG/3 ML NPPB ONE (11:00)
[2017-01-25] MEDS ORDERED: LIDOCAINE 1%, 20ML ONE (14:00)
[2017-01-25] MEDS ORDERED: LIDOCAINE GEL 2%, 5ML ONE (14:00)
[2017-01-25] MEDS ORDERED: LIDOCAINE 4% TOPICAL SOLUTION 50 ML ONE (14:00)
[2017-01-25 14:27] VITALS: BP 108/51
[2017-01-25] MEDS: CHOLECALCIFEROL 1,000 UNIT TABLET PO SCH (17:06)
[2017-01-25] MEDS: MULTIVITAMIN 1 TABLET PO SCH (17:06)
[2017-01-25] MEDS: PANTOPROZOLE 40MG TABLET PO SCH (17:06)
[2017-01-25] MEDS: VANCOMYCIN 1,200 MG in SODIUM CHLORIDE 0.9% 250 ML IV SCH (18:19)
[2017-01-25 18:52] VITALS: BP 101/63
[2017-01-25] MEDS: HEPARIN 5,000 UNITS/ML, 1ML SQ SCH (21:25)
[2017-01-25] MEDS: ATORVASTATIN 40 MG TABLET PO SCH (21:25)
[2017-01-25] MEDS: ERGOCALCIFEROL 50,000 UNIT CAPSULE PO SCH (21:25)
[2017-01-26 01:21] VITALS: BP 117/63
[2017-01-26] MEDS: DEXTROSE 5% IV SCH ×3 (05:06→21:36)
[2017-01-26] MEDS: AZTREONAM IV SCH ×3 (05:06→21:36)
[2017-01-26] MEDS: HEPARIN 5,000 UNITS/ML, 1ML SQ SCH ×3 (05:07→21:22)
[2017-01-26] MEDS: LEVOTHYROXINE 150 MCG TABLET PO SCH (05:07)
[2017-01-26 05:47] LABS: HEMOGLOBIN 9.2 g/dL (11.7-16.4); WHITE BLOOD COUNT 7.6 x10^3/uL (3.4-10)
[2017-01-26 05:56] LABS: BLOOD UREA NITROGEN 12 mg/dL (7-18)
[2017-01-26 07:23] VITALS: BP 135/76
[2017-01-26] MEDS: MULTIVITAMIN 1 TABLET PO SCH (08:50)
[2017-01-26] MEDS: PANTOPROZOLE 40MG TABLET PO SCH (08:50)
[2017-01-26] MEDS: ATENOLOL 50 MG TABLET PO SCH (08:51)
[2017-01-26] MEDS: LISINOPRIL 10 MG TABLET PO SCH (08:51)
[2017-01-26] MEDS: POTASSIUM CHLORIDE 20 MEQ TAB.ER.PRT PO SCH ×2 (08:51→17:46)
[2017-01-26] MEDS: AMIODARONE 200 MG TABLET PO SCH ×2 (12:32→21:23)
[2017-01-26 15:00] VITALS: BP 114/67
[2017-01-26 18:59] VITALS: BP 118/68
[2017-01-26] MEDS: ATORVASTATIN 40 MG TABLET PO SCH (21:23)
[2017-01-27 00:57] VITALS: BP 125/69
[2017-01-27] MEDS: DEXTROSE 5% IV SCH ×3 (04:44→22:02)
[2017-01-27] MEDS: HEPARIN 5,000 UNITS/ML, 1ML SQ SCH ×3 (04:44→22:03)
[2017-01-27] MEDS: AZTREONAM IV SCH ×3 (04:44→22:02)
[2017-01-27 05:22] LABS: HEMATOCRIT 27.3 % (34.6-47.8); HEMOGLOBIN 8.8 g/dL (11.7-16.4); WHITE BLOOD COUNT 5.8 x10^3/uL (3.4-10)
[2017-01-27 05:32] LABS: BLOOD UREA NITROGEN 16 mg/dL (7-18)
[2017-01-27] MEDS ORDERED: VANCOMYCIN 1,200 MG in SODIUM CHLORIDE 0.9% 250 ML IV SCH (06:00)
[2017-01-27] MEDS: LEVOTHYROXINE 150 MCG TABLET PO SCH (06:18)
[2017-01-27 07:09] VITALS: BP 142/73
[2017-01-27] MEDS: POTASSIUM CHLORIDE 20 MEQ TAB.ER.PRT PO SCH ×2 (08:33→17:13)
[2017-01-27] MEDS: PANTOPROZOLE 40MG TABLET PO SCH (08:33)
[2017-01-27] MEDS: AMIODARONE 200 MG TABLET PO SCH ×2 (08:33→22:03)
[2017-01-27] MEDS: LISINOPRIL 10 MG TABLET PO SCH (08:33)
[2017-01-27] MEDS: MULTIVITAMIN 1 TABLET PO SCH (08:33)
[2017-01-27] MEDS ORDERED: ATENOLOL 25 MG TABLET PO SCH (09:00)
[2017-01-27 14:06] VITALS: BP 116/68
[2017-01-27 18:45] VITALS: BP 142/74
[2017-01-27] MEDS: ATORVASTATIN 40 MG TABLET PO SCH (22:04)
[2017-01-28 03:13] VITALS: BP 137/64
[2017-01-28] MEDS: HEPARIN 5,000 UNITS/ML, 1ML SQ SCH ×3 (05:14→20:18)
[2017-01-28] MEDS: LEVOTHYROXINE 150 MCG TABLET PO SCH (05:14)
[2017-01-28] MEDS: AZTREONAM IV SCH ×3 (05:14→20:17)
[2017-01-28] MEDS: DEXTROSE 5% IV SCH ×3 (05:14→20:17)
[2017-01-28 05:23] LABS: HEMATOCRIT 27.5 % (34.6-47.8); WHITE BLOOD COUNT 5.2 x10^3/uL (3.4-10)
[2017-01-28 05:33] LABS: BLOOD UREA NITROGEN 13 mg/dL (7-18)
[2017-01-28] MEDS ORDERED: MAGNESIUM SULFATE PMX 2GM/50ML 50 ML IV ONE (07:30)
[2017-01-28 08:00] VITALS: BP 145/78
[2017-01-28] MEDS: FUROSEMIDE 20 MG/2 ML IV SCH (09:03)
[2017-01-28] MEDS: PANTOPROZOLE 40MG TABLET PO SCH (09:03)
[2017-01-28] MEDS: POTASSIUM CHLORIDE 20 MEQ TAB.ER.PRT PO SCH ×2 (09:03→18:16)
[2017-01-28] MEDS: LISINOPRIL 10 MG TABLET PO SCH (09:04)
[2017-01-28] MEDS: AMIODARONE 200 MG TABLET PO SCH ×2 (09:04→20:18)
[2017-01-28] MEDS: ATENOLOL 50 MG TABLET PO SCH (09:04)
[2017-01-28] MEDS: MULTIVITAMIN 1 TABLET PO SCH (09:04)
[2017-01-28 13:57] VITALS: BP 100/61
[2017-01-28] MEDS: LINEZOLID PMX 600MG/300ML 300 ML IV SCH (14:58)
[2017-01-28 19:32] VITALS: BP 107/65
[2017-01-28] MEDS ORDERED: ONDANSETRON 2MG/ML, 2ML IVPush PRN (20:00)
[2017-01-28] MEDS ORDERED: OXYcodone/APAP 7.5/325MG TABLET PO PRN (20:00)
[2017-01-28] MEDS ORDERED: BISACODYL 10 MG SUPP PR PRN ×2 (20:00)
[2017-01-28] MEDS ORDERED: ZOLPIDEM 5MG TABLET PO PRN (20:00)
[2017-01-28] MEDS ORDERED: hydrALAzine 20 MG/ML, 1ML IVPush PRN ×2 (20:00)
[2017-01-28] MEDS ORDERED: POLYETHYLENE GLYCOL 17 GM PACKET PO PRN ×2 (20:00)
[2017-01-28] MEDS: ATORVASTATIN 40 MG TABLET PO SCH (20:18)
[2017-01-28 20:21] VITALS: BP 122/73
[2017-01-29 00:48] VITALS: BP 127/70
[2017-01-29] MEDS: LINEZOLID PMX 600MG/300ML 300 ML IV SCH ×2 (03:11→15:02)
[2017-01-29] MEDS: DEXTROSE 5% IV SCH ×3 (04:51→19:44)
[2017-01-29] MEDS: AZTREONAM IV SCH ×3 (04:51→19:44)
[2017-01-29] MEDS: HEPARIN 5,000 UNITS/ML, 1ML SQ SCH ×3 (04:51→19:44)
[2017-01-29] MEDS: LEVOTHYROXINE 150 MCG TABLET PO SCH (04:52)
[2017-01-29 05:41] LABS: BLOOD UREA NITROGEN 13 mg/dL (7-18)
[2017-01-29 07:09] VITALS: BP 128/71
[2017-01-29] MEDS: POTASSIUM CHLORIDE 20 MEQ TAB.ER.PRT PO SCH ×2 (08:55→16:30)
[2017-01-29] MEDS: PANTOPROZOLE 40MG TABLET PO SCH (08:55)
[2017-01-29] MEDS: FUROSEMIDE 20 MG/2 ML IV SCH (08:55)
[2017-01-29] MEDS: LISINOPRIL 10 MG TABLET PO SCH (08:55)
[2017-01-29] MEDS: ATENOLOL 50 MG TABLET PO SCH (08:55)
[2017-01-29] MEDS: AMIODARONE 200 MG TABLET PO SCH ×2 (08:55→19:44)
[2017-01-29] MEDS: MULTIVITAMIN 1 TABLET PO SCH (08:55)
[2017-01-29 13:54] VITALS: BP 110/65
[2017-01-29] MEDS: ATORVASTATIN 40 MG TABLET PO SCH (19:45)
[2017-01-29 20:04] VITALS: BP 146/75
[2017-01-30] MEDS: LINEZOLID PMX 600MG/300ML 300 ML IV SCH ×2 (02:39→15:17)
[2017-01-30 02:48] VITALS: BP 122/69
[2017-01-30] MEDS: AZTREONAM IV SCH ×3 (04:32→19:44)
[2017-01-30] MEDS: DEXTROSE 5% IV SCH ×3 (04:32→19:44)
[2017-01-30] MEDS: HEPARIN 5,000 UNITS/ML, 1ML SQ SCH ×3 (04:32→19:45)
[2017-01-30] MEDS: LEVOTHYROXINE 150 MCG TABLET PO SCH (04:33)
[2017-01-30 05:10] LABS: HEMATOCRIT 26.8 % (34.6-47.8); HEMOGLOBIN 8.8 g/dL (11.7-16.4); WHITE BLOOD COUNT 4.6 x10^3/uL (3.4-10)
[2017-01-30 05:18] LABS: BLOOD UREA NITROGEN 14 mg/dL (7-18)
[2017-01-30 08:00] VITALS: BP 114/67
[2017-01-30] MEDS: PANTOPROZOLE 40MG TABLET PO SCH (09:45)
[2017-01-30] MEDS: POTASSIUM CHLORIDE 20 MEQ TAB.ER.PRT PO SCH (09:45)
[2017-01-30] MEDS: FUROSEMIDE 20 MG/2 ML IV SCH (09:45)
[2017-01-30] MEDS: AMIODARONE 200 MG TABLET PO SCH ×2 (09:48→19:45)
[2017-01-30] MEDS: LISINOPRIL 10 MG TABLET PO SCH (09:48)
[2017-01-30] MEDS: MULTIVITAMIN 1 TABLET PO SCH (09:48)
[2017-01-30] MEDS: ATENOLOL 50 MG TABLET PO SCH (09:48)
[2017-01-30 14:18] VITALS: BP 97/60
[2017-01-30] MEDS: ATORVASTATIN 40 MG TABLET PO SCH (19:45)
[2017-01-30 20:03] VITALS: BP 130/69
[2017-01-31 01:59] VITALS: BP 132/69
[2017-01-31] MEDS: LINEZOLID PMX 600MG/300ML 300 ML IV SCH ×2 (02:53→14:33)
[2017-01-31] MEDS: HEPARIN 5,000 UNITS/ML, 1ML SQ SCH ×3 (04:20→21:36)
[2017-01-31] MEDS: AZTREONAM IV SCH ×3 (04:20→21:36)
[2017-01-31] MEDS: LEVOTHYROXINE 150 MCG TABLET PO SCH (04:20)
[2017-01-31] MEDS: DEXTROSE 5% IV SCH ×3 (04:20→21:36)
[2017-01-31 07:07] VITALS: BP 139/72
[2017-01-31] MEDS: AMIODARONE 200 MG TABLET PO SCH ×2 (08:44→21:35)
[2017-01-31] MEDS: FUROSEMIDE 20 MG/2 ML IV SCH ×2 (08:44→17:49)
[2017-01-31] MEDS: POTASSIUM CHLORIDE 20 MEQ TAB.ER.PRT PO SCH (08:45)
[2017-01-31] MEDS: PANTOPROZOLE 40MG TABLET PO SCH (08:45)
[2017-01-31] MEDS: ATENOLOL 50 MG TABLET PO SCH (08:45)
[2017-01-31] MEDS: LISINOPRIL 10 MG TABLET PO SCH (08:45)
[2017-01-31] MEDS: MULTIVITAMIN 1 TABLET PO SCH (08:45)
[2017-01-31 13:37] VITALS: BP 102/62
[2017-01-31 19:53] VITALS: BP 95/58
[2017-01-31] MEDS: ATORVASTATIN 40 MG TABLET PO SCH (21:35)
[2017-02-01 01:31] VITALS: BP 150/80
[2017-02-01] MEDS: LEVOTHYROXINE 150 MCG TABLET PO SCH (05:09)
[2017-02-01] MEDS: DEXTROSE 5% IV SCH ×3 (05:09→21:05)
[2017-02-01] MEDS: AZTREONAM IV SCH ×3 (05:09→21:05)
[2017-02-01] MEDS: HEPARIN 5,000 UNITS/ML, 1ML SQ SCH ×3 (05:15→21:05)
[2017-02-01] MEDS: LINEZOLID PMX 600MG/300ML 300 ML IV SCH ×2 (06:13→17:36)
[2017-02-01 07:29] VITALS: BP 138/67
[2017-02-01] MEDS: ATENOLOL 50 MG TABLET PO SCH (08:57)
[2017-02-01] MEDS: MULTIVITAMIN 1 TABLET PO SCH (08:57)
[2017-02-01] MEDS: AMIODARONE 200 MG TABLET PO SCH ×2 (08:57→21:04)
[2017-02-01] MEDS: PANTOPROZOLE 40MG TABLET PO SCH (08:57)
[2017-02-01] MEDS: LISINOPRIL 10 MG TABLET PO SCH (08:58)
[2017-02-01] MEDS: FUROSEMIDE 20 MG/2 ML IV SCH (08:58)
[2017-02-01] MEDS: POTASSIUM CHLORIDE 20 MEQ TAB.ER.PRT PO SCH (08:58)
[2017-02-01 12:54] VITALS: BP 100/60
[2017-02-01] MEDS ORDERED: FUROSEMIDE 40 MG/4 ML IV ONE (14:00)
[2017-02-01 19:38] VITALS: BP 114/58
[2017-02-01] MEDS: FUROSEMIDE 40 MG/4 ML IV SCH (21:04)
[2017-02-01] MEDS: ERGOCALCIFEROL 50,000 UNIT CAPSULE PO SCH (21:05)
[2017-02-01] MEDS: ATORVASTATIN 40 MG TABLET PO SCH (21:05)
[2017-02-02 00:23] VITALS: BP 118/67
[2017-02-02 04:43] LABS: BLOOD UREA NITROGEN 15 mg/dL (7-18)
[2017-02-02 04:46] LABS: ASPARTATE AMINO TRANSFERASE 50 U/L (15-37)
[2017-02-02 04:55] LABS: HEMATOCRIT 27.7 % (34.6-47.8); HEMOGLOBIN 9.3 g/dL (11.7-16.4); WHITE BLOOD COUNT 4.8 x10^3/uL (3.4-10)
[2017-02-02] MEDS: DEXTROSE 5% IV SCH ×2 (04:59→13:00)
[2017-02-02] MEDS: AZTREONAM IV SCH ×2 (04:59→13:00)
[2017-02-02] MEDS: HEPARIN 5,000 UNITS/ML, 1ML SQ SCH ×3 (04:59→21:38)
[2017-02-02] MEDS: LEVOTHYROXINE 150 MCG TABLET PO SCH (04:59)
[2017-02-02] MEDS: LINEZOLID PMX 600MG/300ML 300 ML IV SCH ×2 (06:05→17:42)
[2017-02-02 07:41] VITALS: BP 131/68
[2017-02-02] MEDS: PANTOPROZOLE 40MG TABLET PO SCH (08:17)
[2017-02-02] MEDS: FUROSEMIDE 40 MG/4 ML IV SCH ×2 (08:17→17:42)
[2017-02-02] MEDS: POTASSIUM CHLORIDE 20 MEQ TAB.ER.PRT PO SCH (09:59)
[2017-02-02] MEDS: AMIODARONE 200 MG TABLET PO SCH ×2 (10:00→21:38)
[2017-02-02] MEDS: LISINOPRIL 10 MG TABLET PO SCH (10:00)
[2017-02-02] MEDS: MULTIVITAMIN 1 TABLET PO SCH (10:00)
[2017-02-02] MEDS: ATENOLOL 50 MG TABLET PO SCH (10:01)
[2017-02-02] MEDS ORDERED: CATHFLO-ALTEPLASE 2 MG/2 ML CATHFLUSH ONE ×2 (18:00)
[2017-02-02 18:48] VITALS: BP 100/65
[2017-02-02] MEDS: ATORVASTATIN 40 MG TABLET PO SCH (21:38)
[2017-02-03] MEDS: ONDANSETRON 2MG/ML, 2ML IVPush PRN (00:42)
[2017-02-03 00:50] VITALS: BP 121/71
[2017-02-03] MEDS: LEVOTHYROXINE 150 MCG TABLET PO SCH (05:29)
[2017-02-03] MEDS: HEPARIN 5,000 UNITS/ML, 1ML SQ SCH ×3 (05:29→21:00)
[2017-02-03] MEDS: LINEZOLID PMX 600MG/300ML 300 ML IV SCH ×2 (05:29→17:27)
[2017-02-03 05:52] LABS: HEMATOCRIT 26.4 % (34.6-47.8); HEMOGLOBIN 8.6 g/dL (11.7-16.4); WHITE BLOOD COUNT 6.3 x10^3/uL (3.4-10)
[2017-02-03 05:54] LABS: BLOOD UREA NITROGEN 16 mg/dL (7-18)
[2017-02-03 08:56] VITALS: BP 98/55
[2017-02-03] MEDS: ATENOLOL 50 MG TABLET PO SCH (09:00)
[2017-02-03] MEDS: LISINOPRIL 10 MG TABLET PO SCH (09:00)
[2017-02-03] MEDS: FUROSEMIDE 40 MG/4 ML IV SCH (09:18)
[2017-02-03] MEDS: POTASSIUM CHLORIDE 20 MEQ TAB.ER.PRT PO SCH (09:19)
[2017-02-03] MEDS: AMIODARONE 200 MG TABLET PO SCH ×2 (09:19→21:52)
[2017-02-03] MEDS: PANTOPROZOLE 40MG TABLET PO SCH (09:19)
[2017-02-03] MEDS: MULTIVITAMIN 1 TABLET PO SCH (09:19)
[2017-02-03 11:31] VITALS: BP 100/63
[2017-02-03 13:47] VITALS: BP 96/61
[2017-02-03 19:10] VITALS: BP 106/66
[2017-02-03] MEDS: ATORVASTATIN 40 MG TABLET PO SCH (21:52)
[2017-02-04 01:15] VITALS: BP 106/66
[2017-02-04] MEDS: HEPARIN 5,000 UNITS/ML, 1ML SQ SCH ×3 (05:15→21:00)
[2017-02-04] MEDS: LINEZOLID PMX 600MG/300ML 300 ML IV SCH ×2 (05:16→18:26)
[2017-02-04] MEDS: LEVOTHYROXINE 150 MCG TABLET PO SCH ×2 (06:00→07:55)
[2017-02-04 06:03] LABS: HEMATOCRIT 26.1 % (34.6-47.8); HEMOGLOBIN 8.4 g/dL (11.7-16.4); WHITE BLOOD COUNT 5.5 x10^3/uL (3.4-10)
[2017-02-04 06:08] LABS: BLOOD UREA NITROGEN 18 mg/dL (7-18)
[2017-02-04 07:40] VITALS: BP 115/68
[2017-02-04] MEDS: ATENOLOL 50 MG TABLET PO SCH (07:51)
[2017-02-04] MEDS: AMIODARONE 200 MG TABLET PO SCH ×2 (07:51→21:00)
[2017-02-04] MEDS: MULTIVITAMIN 1 TABLET PO SCH (07:51)
[2017-02-04] MEDS: POTASSIUM CHLORIDE 20 MEQ TAB.ER.PRT PO SCH (07:51)
[2017-02-04] MEDS: LISINOPRIL 10 MG TABLET PO SCH (07:51)
[2017-02-04] MEDS: PANTOPROZOLE 40MG TABLET PO SCH (07:51)
[2017-02-04] MEDS ORDERED: FUROSEMIDE 40 MG/4 ML IV SCH (09:00)
[2017-02-04 11:28] VITALS: BP 112/70
[2017-02-04] MEDS ORDERED: DOXYCYCLINE IVPB ONE (13:30)
[2017-02-04] MEDS ORDERED: SODIUM CHLORIDE 0.9% IVPB ONE (13:30)
[2017-02-04] MEDS ORDERED: MIDAZOLAM 1 MG/ML, 2ML ONE (13:40)
[2017-02-04] MEDS ORDERED: FENTANYL PF 100 MCG/2ML ONE ×2 (13:40→15:43)
[2017-02-04] MEDS ORDERED: EPINEPHRINE 1 MG/ML, 1ML ONE (13:55)
[2017-02-04] MEDS ORDERED: BUPIVACAINE/PF 0.5% ONE (13:55)
[2017-02-04] MEDS ORDERED: PHENYLEPHRINE 10 MG/ML ONE (14:21)
[2017-02-04] MEDS ORDERED: EPHEDRINE 50 MG/ML, 1ML ONE (14:21)
[2017-02-04] MEDS ORDERED: BUPIVACAINE/PF-EPI 0.5% 1:200K INFIL ONE (15:27)
[2017-02-04] MEDS ORDERED: EPHEDRINE 50 MG/ML, 1ML IVPush PRN (15:30)
[2017-02-04] MEDS ORDERED: ALBUTEROL/IPRATROPIUM 2.5MG/0.5MG, 3 ML NPPB PRN (15:30)
[2017-02-04] MEDS ORDERED: HYDROcodone/APAP 7.5-325MG/15ML UDC PO PRN (15:30)
[2017-02-04] MEDS ORDERED: METOPROLOL 1 MG/ML, 5ML IV PRN (15:30)
[2017-02-04] MEDS ORDERED: FENTANYL PF 100 MCG/2ML IV PRN (15:30)
[2017-02-04] MEDS ORDERED: ALBUTEROL SULFATE 2.5 MG/3 ML NPPB PRN (15:30)
[2017-02-04] MEDS ORDERED: OXYcodone 5 MG/5 ML ORAL.SOL UDC PO PRN (15:30)
[2017-02-04] MEDS ORDERED: ONDANSETRON 2MG/ML, 2ML IVPush PRN (15:30)
[2017-02-04] MEDS ORDERED: MIDAZOLAM 1 MG/ML, 2ML IV PRN (15:30)
[2017-02-04] MEDS ORDERED: PROMETHAZINE 25 MG/ML, 1ML IV PRN (15:30)
[2017-02-04] MEDS ORDERED: hydrALAzine 20 MG/ML, 1ML IV PRN (15:30)
[2017-02-04] MEDS ORDERED: DIAZEPAM 5 MG/ML, 2ML IVPush PRN (15:30)
[2017-02-04] MEDS ORDERED: ACETAMINOPHEN 325 MG TABLET PO PRN (15:30)
[2017-02-04] MEDS ORDERED: LABETALOL 5MG/ML, 20ML IV PRN (15:30)
[2017-02-04] MEDS ORDERED: ACETAMINOPHEN 650 MG/20.3 ML UDC ONE (15:43)
[2017-02-04] MEDS ORDERED: HYDROmorphone 1 MG/ML, 1ML ONE (15:43)
[2017-02-04] MEDS ORDERED: OXYcodone 5 MG/5 ML ORAL.SOL UDC ONE (15:44)
[2017-02-04] MEDS ORDERED: NEOSTIGMINE 1 MG/ML, 10ML ONE (15:52)
[2017-02-04] MEDS ORDERED: PROPOFOL 10 MG/ML, 20ML ONE (15:52)
[2017-02-04] MEDS ORDERED: ONDANSETRON 2MG/ML, 2ML ONE (15:52)
[2017-02-04] MEDS ORDERED: SUCCINYLCHOLINE 20 MG/ML, 10ML ONE (15:52)
[2017-02-04] MEDS ORDERED: GLYCOPYRROLATE 0.2MG/1ML, 5ML ONE (15:52)
[2017-02-04] MEDS ORDERED: DEXAMETHASONE 4 MG/ML, 1ML ONE (15:52)
[2017-02-04] MEDS ORDERED: CEFAZOLIN 1,000 MG ONE (15:52)
[2017-02-04] MEDS ORDERED: ROCURONIUM 10 MG/ML,10ML ONE (15:52)
[2017-02-04] MEDS: HYDROmorphone 1 MG/ML, 1ML IV PRN ×2 (16:04→16:16)
[2017-02-04 17:35] VITALS: BP 118/69
[2017-02-04 18:10] VITALS: BP 119/68
[2017-02-04] MEDS ORDERED: ARTIFICIAL TEARS OPHTH SOLN 15ML EACHEYE PRN (19:30)
[2017-02-04 20:00] VITALS: BP 111/64
[2017-02-04] MEDS: ATORVASTATIN 40 MG TABLET PO SCH (22:53)
[2017-02-05 00:02] VITALS: BP 99/58
[2017-02-05 04:23] VITALS: BP 100/57
[2017-02-05] MEDS: LINEZOLID PMX 600MG/300ML 300 ML IV SCH ×2 (05:57→17:05)
[2017-02-05] MEDS: LEVOTHYROXINE 150 MCG TABLET PO SCH (05:57)
[2017-02-05 06:05] LABS: HEMATOCRIT 26.3 % (34.6-47.8); HEMOGLOBIN 8.5 g/dL (11.7-16.4); WHITE BLOOD COUNT 12.6 x10^3/uL (3.4-10)
[2017-02-05 06:14] LABS: BLOOD UREA NITROGEN 20 mg/dL (7-18)
[2017-02-05] MEDS: PANTOPROZOLE 40MG TABLET PO SCH (07:39)
[2017-02-05] MEDS: HEPARIN 5,000 UNITS/ML, 1ML SQ SCH ×2 (08:00→15:05)
[2017-02-05] MEDS: HYDROcodone/APAP 5/325 TABLET PO PRN ×2 (08:02→10:02)
[2017-02-05 09:00] VITALS: BP 106/56
[2017-02-05] MEDS: MULTIVITAMIN 1 TABLET PO SCH (09:52)
[2017-02-05] MEDS: AMIODARONE 200 MG TABLET PO SCH (09:52)
[2017-02-05] MEDS: SODIUM CHLORIDE 0.9% 1,000 ML IV SCH ×2 (09:52→17:06)
[2017-02-05] MEDS: POTASSIUM CHLORIDE 20 MEQ TAB.ER.PRT PO SCH (09:52)
[2017-02-05 14:05] VITALS: BP 94/55
[2017-02-05] MEDS ORDERED: ACETAMINOPHEN 325 MG TABLET ONE (17:52)
[2017-02-05] MEDS: ACETAMINOPHEN 325 MG TABLET PO PRN (18:00)
[2017-02-05 18:51] VITALS: BP 109/67
[2017-02-05] MEDS: ATORVASTATIN 40 MG TABLET PO SCH (21:41)
[2017-02-06] MEDS: ACETAMINOPHEN 325 MG TABLET PO PRN ×2 (00:15→21:50)
[2017-02-06 01:06] VITALS: BP 100/58
[2017-02-06] MEDS: SODIUM CHLORIDE 0.9% 1,000 ML IV SCH (01:55)
[2017-02-06] MEDS: LINEZOLID PMX 600MG/300ML 300 ML IV SCH ×2 (04:50→18:02)
[2017-02-06] MEDS: LEVOTHYROXINE 150 MCG TABLET PO SCH (05:22)
[2017-02-06 05:24] LABS: BLOOD UREA NITROGEN 19 mg/dL (7-18)
[2017-02-06 07:05] VITALS: BP 116/66
[2017-02-06] MEDS: HEPARIN 5,000 UNITS/ML, 1ML SQ SCH ×2 (07:25)
[2017-02-06] MEDS: HYDROcodone/APAP 5/325 TABLET PO PRN ×3 (08:24→13:15)
[2017-02-06] MEDS: PANTOPROZOLE 40MG TABLET PO SCH (08:24)
[2017-02-06] MEDS: POTASSIUM CHLORIDE 20 MEQ TAB.ER.PRT PO SCH (09:15)
[2017-02-06] MEDS: MULTIVITAMIN 1 TABLET PO SCH (09:15)
[2017-02-06] MEDS: AMIODARONE 200 MG TABLET PO SCH (09:15)
[2017-02-06 13:45] VITALS: BP 113/60
[2017-02-06] MEDS: ONDANSETRON 2MG/ML, 2ML IVPush PRN (18:28)
[2017-02-06 18:41] VITALS: BP 116/65
[2017-02-06] MEDS: ATORVASTATIN 40 MG TABLET PO SCH (21:50)
[2017-02-07] MEDS: HEPARIN 5,000 UNITS/ML, 1ML SQ SCH ×3 (00:04→13:00)
[2017-02-07 01:06] VITALS: BP 130/76
[2017-02-07] MEDS: LEVOTHYROXINE 150 MCG TABLET PO SCH (05:32)
[2017-02-07] MEDS: LINEZOLID PMX 600MG/300ML 300 ML IV SCH ×2 (05:32→17:05)
[2017-02-07] MEDS: ACETAMINOPHEN 325 MG TABLET PO PRN ×2 (05:55→12:48)
[2017-02-07 06:05] LABS: BLOOD UREA NITROGEN 16 mg/dL (7-18)
[2017-02-07 06:15] LABS: HEMATOCRIT 26.8 % (34.6-47.8); HEMOGLOBIN 8.6 g/dL (11.7-16.4)
[2017-02-07 06:42] VITALS: BP 142/70
[2017-02-07] MEDS ORDERED: FUROSEMIDE 40 MG/4 ML ONE (07:43)
[2017-02-07] MEDS: MULTIVITAMIN 1 TABLET PO SCH (07:55)
[2017-02-07] MEDS: AMIODARONE 200 MG TABLET PO SCH (07:56)
[2017-02-07] MEDS: FUROSEMIDE 40 MG/4 ML IV SCH (07:56)
[2017-02-07] MEDS: POTASSIUM CHLORIDE 20 MEQ TAB.ER.PRT PO SCH (07:56)
[2017-02-07] MEDS: PANTOPROZOLE 40MG TABLET PO SCH (07:56)
[2017-02-07] MEDS: HYDROcodone/APAP 5/325 TABLET PO PRN ×2 (08:06→15:55)
[2017-02-07] MEDS: ONDANSETRON 2MG/ML, 2ML IVPush PRN ×2 (09:38→15:55)
[2017-02-07 14:10] VITALS: BP 102/64
[2017-02-07 19:25] VITALS: BP 116/70
[2017-02-07] MEDS: ATORVASTATIN 40 MG TABLET PO SCH (19:56)
[2017-02-08] MEDS: HEPARIN 5,000 UNITS/ML, 1ML SQ SCH ×3 (00:30→16:00)
[2017-02-08 00:55] VITALS: BP 138/68
[2017-02-08] MEDS: LEVOTHYROXINE 150 MCG TABLET PO SCH (05:18)
[2017-02-08] MEDS: LINEZOLID PMX 600MG/300ML 300 ML IV SCH ×2 (05:18→17:27)
[2017-02-08 06:45] VITALS: BP 130/68
[2017-02-08] MEDS: MULTIVITAMIN 1 TABLET PO SCH (09:21)
[2017-02-08] MEDS: PANTOPROZOLE 40MG TABLET PO SCH (09:21)
[2017-02-08] MEDS: POTASSIUM CHLORIDE 20 MEQ TAB.ER.PRT PO SCH (09:21)
[2017-02-08] MEDS: AMIODARONE 200 MG TABLET PO SCH (09:22)
[2017-02-08] MEDS: FUROSEMIDE 40 MG/4 ML IV SCH (09:22)
[2017-02-08 13:42] VITALS: BP 122/62
[2017-02-08] MEDS: ACETAMINOPHEN 325 MG TABLET PO PRN (13:58)
[2017-02-08 18:50] VITALS: BP 132/72
[2017-02-08] MEDS: ERGOCALCIFEROL 50,000 UNIT CAPSULE PO SCH (20:16)
[2017-02-08] MEDS: ATORVASTATIN 40 MG TABLET PO SCH (20:16)
[2017-02-09 05:00] VITALS: BP 123/61
[2017-02-09] MEDS: LINEZOLID PMX 600MG/300ML 300 ML IV SCH ×2 (05:34→17:42)
[2017-02-09] MEDS: LEVOTHYROXINE 150 MCG TABLET PO SCH (05:34)
[2017-02-09 07:06] VITALS: BP 129/65
[2017-02-09] MEDS: HEPARIN 5,000 UNITS/ML, 1ML SQ SCH ×3 (08:00→16:00)
[2017-02-09] MEDS: MULTIVITAMIN 1 TABLET PO SCH (08:24)
[2017-02-09] MEDS: POTASSIUM CHLORIDE 20 MEQ TAB.ER.PRT PO SCH (08:24)
[2017-02-09] MEDS: PANTOPROZOLE 40MG TABLET PO SCH (08:24)
[2017-02-09] MEDS: FUROSEMIDE 40 MG/4 ML IV SCH (08:25)
[2017-02-09] MEDS: AMIODARONE 200 MG TABLET PO SCH (08:25)
[2017-02-09] MEDS: ACETAMINOPHEN 325 MG TABLET PO PRN ×2 (08:35→14:06)
[2017-02-09 13:00] VITALS: BP 120/65
[2017-02-09] MEDS: ONDANSETRON ODT 4 MG PO PRN (14:25)
[2017-02-09 18:37] VITALS: BP 130/81
[2017-02-09] MEDS: ATORVASTATIN 40 MG TABLET PO SCH (20:52)
[2017-02-10 01:02] VITALS: BP 131/74
[2017-02-10] MEDS: LEVOTHYROXINE 150 MCG TABLET PO SCH (06:11)
[2017-02-10] MEDS: LINEZOLID PMX 600MG/300ML 300 ML IV SCH ×2 (06:12→18:31)
[2017-02-10] MEDS: HEPARIN 5,000 UNITS/ML, 1ML SQ SCH ×3 (08:00→16:00)
[2017-02-10 08:51] VITALS: BP 145/65
[2017-02-10] MEDS: POTASSIUM CHLORIDE 20 MEQ TAB.ER.PRT PO SCH (10:17)
[2017-02-10] MEDS: FUROSEMIDE 40 MG/4 ML IV SCH (10:17)
[2017-02-10] MEDS: MULTIVITAMIN 1 TABLET PO SCH (10:17)
[2017-02-10] MEDS: AMIODARONE 200 MG TABLET PO SCH (10:18)
[2017-02-10] MEDS: ONDANSETRON ODT 4 MG PO PRN (10:40)
[2017-02-10 11:58] LABS: HEMATOCRIT 27.8 % (34.6-47.8); HEMOGLOBIN 9.1 g/dL (11.7-16.4); WHITE BLOOD COUNT 5.1 x10^3/uL (3.4-10)
[2017-02-10 12:07] LABS: BLOOD UREA NITROGEN 17 mg/dL (7-18)
[2017-02-10 12:09] LABS: ASPARTATE AMINO TRANSFERASE 41 U/L (15-37)
[2017-02-10 14:31] VITALS: BP 150/80
[2017-02-10] MEDS: FUROSEMIDE 100 MG in SODIUM CHLORIDE 0.9% 90 ML IV SCH (16:18)
[2017-02-10] MEDS: PANTOPROZOLE 40MG TABLET PO SCH (17:05)
[2017-02-10 18:53] VITALS: BP 130/71
[2017-02-10] MEDS ORDERED: LOPERAMIDE 2 MG CAPSULE PO PRN (22:00)
[2017-02-10] MEDS ORDERED: LOPERAMIDE 2 MG CAPSULE PO ONE (22:00)
[2017-02-10] MEDS: ATORVASTATIN 40 MG TABLET PO SCH (23:06)
[2017-02-11 01:46] LABS: BLOOD UREA NITROGEN 16 mg/dL (7-18)
[2017-02-11 04:29] VITALS: BP 112/66
[2017-02-11] MEDS: LEVOTHYROXINE 150 MCG TABLET PO SCH (06:05)
[2017-02-11] MEDS: LINEZOLID PMX 600MG/300ML 300 ML IV SCH ×2 (06:06→18:50)
[2017-02-11 06:24] LABS: HEMATOCRIT 24.6 % (34.6-47.8); HEMOGLOBIN 8.1 g/dL (11.7-16.4); WHITE BLOOD COUNT 3.9 x10^3/uL (3.4-10)
[2017-02-11 06:27] LABS: BLOOD UREA NITROGEN 16 mg/dL (7-18)
[2017-02-11] MEDS: HEPARIN 5,000 UNITS/ML, 1ML SQ SCH ×3 (07:37→13:26)
[2017-02-11 08:00] VITALS: BP 132/75
[2017-02-11] MEDS: AMIODARONE 200 MG TABLET PO SCH (08:35)
[2017-02-11] MEDS: MULTIVITAMIN 1 TABLET PO SCH (08:35)
[2017-02-11] MEDS: PANTOPROZOLE 40MG TABLET PO SCH (08:35)
[2017-02-11] MEDS: POTASSIUM CHLORIDE 20 MEQ TAB.ER.PRT PO SCH (08:35)
[2017-02-11] MEDS: FUROSEMIDE 100 MG in SODIUM CHLORIDE 0.9% 90 ML IV SCH (13:26)
[2017-02-11 13:36] VITALS: BP 125/68
[2017-02-11] MEDS ORDERED: MAGNESIUM SULFATE 3 GM in SODIUM CHLORIDE 0.9% 100 ML IV ONE (16:00)
[2017-02-11 16:13] LABS: CYTOLOGY BODY FLUID RECD INTO PATHOLOGY; CYTOLOGY BODY FLUID SOURCE PLEURAL FLUID
[2017-02-11 20:24] VITALS: BP 134/68
[2017-02-11] MEDS: ATORVASTATIN 40 MG TABLET PO SCH (21:55)
[2017-02-12 01:21] VITALS: BP 134/64
[2017-02-12] MEDS: LEVOTHYROXINE 150 MCG TABLET PO SCH (06:00)
[2017-02-12 06:49] LABS: HEMATOCRIT 24.3 % (34.6-47.8); HEMOGLOBIN 8.2 g/dL (11.7-16.4); WHITE BLOOD COUNT 3.1 x10^3/uL (3.4-10)
[2017-02-12 06:50] LABS: BLOOD UREA NITROGEN 16 mg/dL (7-18)
[2017-02-12] MEDS: MULTIVITAMIN 1 TABLET PO SCH (07:37)
[2017-02-12] MEDS: POTASSIUM CHLORIDE 20 MEQ TAB.ER.PRT PO SCH (07:38)
[2017-02-12] MEDS: PANTOPROZOLE 40MG TABLET PO SCH (07:38)
[2017-02-12] MEDS: AMIODARONE 200 MG TABLET PO SCH (07:38)
[2017-02-12] MEDS: HEPARIN 5,000 UNITS/ML, 1ML SQ SCH ×3 (07:38→16:12)
[2017-02-12 08:28] VITALS: BP 117/63
[2017-02-12] MEDS ORDERED: FUROSEMIDE 100 MG in SODIUM CHLORIDE 0.9% 90 ML IV SCH (11:00)
[2017-02-12 13:26] VITALS: BP 115/69
[2017-02-12] MEDS: ONDANSETRON ODT 4 MG PO PRN (14:42)
[2017-02-12 20:14] VITALS: BP 112/67
[2017-02-12] MEDS: ATORVASTATIN 40 MG TABLET PO SCH (20:54)
[2017-02-12] MEDS ORDERED: FUROSEMIDE 40 MG/4 ML IV SCH (21:00)
[2017-02-12 21:30] LABS: ASPARTATE AMINO TRANSFERASE 24 U/L (15-37); BLOOD UREA NITROGEN 17 mg/dL (7-18)
[2017-02-13] MEDS: HEPARIN 5,000 UNITS/ML, 1ML SQ SCH ×4 (00:07→23:46)
[2017-02-13 01:39] VITALS: BP 106/69
[2017-02-13] MEDS: LEVOTHYROXINE 150 MCG TABLET PO SCH (05:44)
[2017-02-13 06:17] LABS: HEMATOCRIT 24.2 % (34.6-47.8); HEMOGLOBIN 8.1 g/dL (11.7-16.4); WHITE BLOOD COUNT 2.4 x10^3/uL (3.4-10)
[2017-02-13 08:37] VITALS: BP 127/74
[2017-02-13 10:22] LABS: ASPARTATE AMINO TRANSFERASE 28 U/L (15-37); BLOOD UREA NITROGEN 16 mg/dL (7-18)
[2017-02-13] MEDS: POTASSIUM CHLORIDE 20 MEQ TAB.ER.PRT PO SCH (10:52)
[2017-02-13] MEDS: AMIODARONE 200 MG TABLET PO SCH (10:52)
[2017-02-13] MEDS: MULTIVITAMIN 1 TABLET PO SCH (10:53)
[2017-02-13] MEDS: PANTOPROZOLE 40MG TABLET PO SCH (10:53)
[2017-02-13 14:33] VITALS: BP 108/67
[2017-02-13] MEDS: FUROSEMIDE 40 MG/4 ML IV SCH (18:13)
[2017-02-13 20:15] VITALS: BP 108/61
[2017-02-13] MEDS: ATORVASTATIN 40 MG TABLET PO SCH (21:36)
[2017-02-13 22:17] LABS: ASPARTATE AMINO TRANSFERASE 25 U/L (15-37); BLOOD UREA NITROGEN 18 mg/dL (7-18)
[2017-02-14 01:49] VITALS: BP 112/69
[2017-02-14] MEDS: LEVOTHYROXINE 150 MCG TABLET PO SCH (05:40)
[2017-02-14] MEDS: HEPARIN 5,000 UNITS/ML, 1ML SQ SCH ×2 (07:23→17:25)
[2017-02-14] MEDS: FUROSEMIDE 40 MG/4 ML IV SCH ×2 (07:24→17:31)
[2017-02-14] MEDS: PANTOPROZOLE 40MG TABLET PO SCH (07:24)
[2017-02-14 08:16] VITALS: BP 105/65
[2017-02-14] MEDS: MULTIVITAMIN 1 TABLET PO SCH (09:46)
[2017-02-14] MEDS: AMIODARONE 200 MG TABLET PO SCH (09:46)
[2017-02-14] MEDS: POTASSIUM CHLORIDE 20 MEQ TAB.ER.PRT PO SCH (09:46)
[2017-02-14 10:19] LABS: ASPARTATE AMINO TRANSFERASE 25 U/L (15-37); BLOOD UREA NITROGEN 13 mg/dL (7-18)
[2017-02-14 11:47] LABS: CYTOLOGY BODY FLUID RECD INTO PATHOLOGY; CYTOLOGY BODY FLUID SOURCE PLEURAL FLUID
[2017-02-14 13:41] VITALS: BP 130/70
[2017-02-14 19:29] VITALS: BP 104/60
[2017-02-14] MEDS: ATORVASTATIN 40 MG TABLET PO SCH (20:24)
[2017-02-15 03:44] VITALS: BP 101/51
[2017-02-15] MEDS: LEVOTHYROXINE 150 MCG TABLET PO SCH (06:24)
[2017-02-15 06:25] LABS: BLOOD UREA NITROGEN 15 mg/dL (7-18)
[2017-02-15 06:47] VITALS: BP 102/62
[2017-02-15] MEDS ORDERED: MAGNESIUM SULFATE PMX 2GM/50ML 50 ML IV ONE (07:00)
[2017-02-15] MEDS: FUROSEMIDE 40 MG/4 ML IV SCH ×2 (09:15→17:04)
[2017-02-15] MEDS: AMIODARONE 200 MG TABLET PO SCH (09:16)
[2017-02-15] MEDS: POTASSIUM CHLORIDE 20 MEQ TAB.ER.PRT PO SCH (09:16)
[2017-02-15] MEDS: HEPARIN 5,000 UNITS/ML, 1ML SQ SCH ×3 (09:16→17:05)
[2017-02-15] MEDS: MULTIVITAMIN 1 TABLET PO SCH (09:16)
[2017-02-15] MEDS: PANTOPROZOLE 40MG TABLET PO SCH (09:17)
[2017-02-15] MEDS ORDERED: DIGOXIN 0.25 MG/ML, 2ML IVPush ONE (10:00)
[2017-02-15 13:48] VITALS: BP 110/61
[2017-02-15 19:28] VITALS: BP 116/67
[2017-02-15] MEDS: ATORVASTATIN 40 MG TABLET PO SCH (20:18)
[2017-02-15] MEDS: ERGOCALCIFEROL 50,000 UNIT CAPSULE PO SCH (20:18)
[2017-02-16] MEDS: HEPARIN 5,000 UNITS/ML, 1ML SQ SCH ×2 (00:33→07:21)
[2017-02-16 01:53] VITALS: BP 130/67
[2017-02-16] MEDS: LEVOTHYROXINE 150 MCG TABLET PO SCH (04:53)
[2017-02-16 05:51] LABS: HEMATOCRIT 23.7 % (34.6-47.8); HEMOGLOBIN 7.7 g/dL (11.7-16.4); WHITE BLOOD COUNT 3.1 x10^3/uL (3.4-10)
[2017-02-16 05:55] LABS: BLOOD UREA NITROGEN 12 mg/dL (7-18)
[2017-02-16 06:09] LABS: DIFF TOTAL CELLS COUNTED 100 CELL DIFF
[2017-02-16 06:14] LABS: ANISOCYTOSIS 1+; VERIFY COUNTS? YES
[2017-02-16 06:15] LABS: OVALOCYTES 1+
[2017-02-16] MEDS: FUROSEMIDE 40 MG/4 ML IV SCH (07:21)
[2017-02-16] MEDS: PANTOPROZOLE 40MG TABLET PO SCH (07:21)
[2017-02-16 08:02] VITALS: BP 127/70
[2017-02-16] MEDS ORDERED: APIX5TAB PO (09:05)
[2017-02-16] MEDS ORDERED: FURO10VI37 IV (09:05)
[2017-02-16] MEDS ORDERED: POTA20TA6 PO (09:05)
[2017-02-16] MEDS ORDERED: AMIO200T42 PO (09:05)
[2017-02-16] MEDS ORDERED: LEVO150T PO (09:05)
[2017-02-16] MEDS: MULTIVITAMIN 1 TABLET PO SCH (09:40)
[2017-02-16] MEDS: POTASSIUM CHLORIDE 20 MEQ TAB.ER.PRT PO SCH (09:40)
[2017-02-16] MEDS: AMIODARONE 200 MG TABLET PO SCH (09:41)
[2017-02-16] MEDS ORDERED: APIXABAN 5 MG TABLET PO SCH (10:00)
== END 2017-02-16 12:52 | DRG 853 ==
LOC: ED 15:09 → EDIP 15:10 → 5SO 16:01 → 3NW 02-08 13:00
PROVIDERS: ADMIT Internal Medicine; ATTEND Family Medicine
PROC: 0W993ZZ Drainage of Right Pleural Cavity, Percutaneous Approach (ICD-10-PCS; principal; 2017-01-09)
PROC: 0W9B3ZX Drainage of Left Pleural Cavity, Percutaneous Approach, Diagnostic (ICD-10-PCS; 2017-01-12)
PROC: 0W993ZX Drainage of Right Pleural Cavity, Percutaneous Approach, Diagnostic (ICD-10-PCS; 2017-01-12)
PROC: 02HV33Z Insertion of Infusion Device into Superior Vena Cava, Percutaneous Approach (ICD-10-PCS; 2017-01-15)
PROC: B5181ZA Fluoroscopy of Superior Vena Cava using Low Osmolar Contrast, Guidance (ICD-10-PCS; 2017-01-15)
PROC: B548ZZA Ultrasonography of Superior Vena Cava, Guidance (ICD-10-PCS; 2017-01-15)
PROC: 30233N1 Transfusion of Nonautologous Red Blood Cells into Peripheral Vein, Percutaneous Approach (ICD-10-PCS; 2017-01-21)
PROC: 0W993ZZ Drainage of Right Pleural Cavity, Percutaneous Approach (ICD-10-PCS; 2017-01-22)
PROC: 0W9B3ZZ Drainage of Left Pleural Cavity, Percutaneous Approach (ICD-10-PCS; 2017-01-23)
PROC: 0B9F8ZX Drainage of Right Lower Lung Lobe, Via Natural or Artificial Opening Endoscopic, Diagnostic (ICD-10-PCS; 2017-01-25)
PROC: 0B9D8ZX Drainage of Right Middle Lung Lobe, Via Natural or Artificial Opening Endoscopic, Diagnostic (ICD-10-PCS; 2017-01-25)
PROC: 0BBP4ZX Excision of Left Pleura, Percutaneous Endoscopic Approach, Diagnostic (ICD-10-PCS; 2017-02-04)
PROC: 0W9B40Z Drainage of Left Pleural Cavity with Drainage Device, Percutaneous Endoscopic Approach (ICD-10-PCS; 2017-02-04)
DX: A41.9 Sepsis, unspecified organism (principal); J96.01 Acute respiratory failure with hypoxia; I26.99 Other pulmonary embolism without acute cor pulmonale; E43 Unspecified severe protein-calorie malnutrition; J15.212 Pneumonia due to Methicillin resistant Staphylococcus aureus; N17.0 Acute kidney failure with tubular necrosis; C78.6 Secondary malignant neoplasm of retroperitoneum and peritoneum; J90 Pleural effusion, not elsewhere classified; D68.69 Other thrombophilia; K56.7 Ileus, unspecified; I13.0 Hypertensive heart and chronic kidney disease with heart failure and stage 1 through stage 4 chronic kidney disease, or unspecified chronic kidney disease; L03.90 Cellulitis, unspecified; J98.11 Atelectasis; N39.0 Urinary tract infection, site not specified; H57.8 Other specified disorders of eye and adnexa; E89.0 Postprocedural hypothyroidism; I48.0 Paroxysmal atrial fibrillation; I48.2 Chronic atrial fibrillation; I50.9 Heart failure, unspecified; N18.9 Chronic kidney disease, unspecified; R04.0 Epistaxis; R65.20 Severe sepsis without septic shock; D64.9 Anemia, unspecified; Z68.25 Body mass index [BMI] 25.0-25.9, adult; Z23 Encounter for immunization; Z85.43 Personal history of malignant neoplasm of ovary; Z85.850 Personal history of malignant neoplasm of thyroid; Z86.711 Personal history of pulmonary embolism; Z87.891 Personal history of nicotine dependence; Z88.0 Allergy status to penicillin; Z90.81 Acquired absence of spleen; Z90.710 Acquired absence of both cervix and uterus
CPT/HCPCS: 31622; 31624; 32555; 36415; 36569; 36600; 71010; 71250; 71275; 74000; 76770; 76937; 77001; 80048; 80053; 80202; 81001; 82040; 82042; 82150; 82306; 82436; 82607; 82664; 82728; 82803; 82945; 83540; 83550; 83605; 83615; 83735; 83880; 83986; 84100; 84132; 84133; 84145; 84155; 84157; 84300; 84439; 84443; 84466; 84478; 84481; 84484; 85014; 85018; 85025; 85520; 85610; 85730; 86850; 86900; 86923; 87015; 87040; 87070; 87075; 87077; 87086; 87102; 87106; 87116; 87186; 87205; 87206; 87324; 88112; 88305; 88312; 88341; 88342; 89051; 93005; 93306; 93970; 94640; 96372; 99152; 99153; C1729; J0171; J0456; J0690; J0696; J1100; J1170; J1644; J1940; J2020; J2250; J2405; J2704; J2710; J2997; J3010; J3370; J3475; J3480; J3490; P9047; Q0162; Q9967; C1751; C9113; G0461; J0282; J0330; J1160; J2370; J7030; J7050; J7060; P9016; S0028

== ENCOUNTER 2017-02-19 09:28 | Emergency (ER) | payer MEDICARE ==
[~2017-02-19] VITALS: Ht 162.6 cm; Wt 53.0 kg
[~2017-02-19 09:28] MED LIST changes: +AMIO200T42 PO; +APIX5TAB PO; +FURO10VI37 IV; +LEVO150T PO; +POTA20TA6 PO
[2017-02-19 11:12] LABS: BLOOD UREA NITROGEN 21 mg/dL (7-18)
[2017-02-19 11:15] LABS: HEMATOCRIT 23.2 % (34.6-47.8); HEMOGLOBIN 7.6 g/dL (11.7-16.4); WHITE BLOOD COUNT 6.3 x10^3/uL (3.4-10)
[2017-02-19 11:57] LABS: DIFF TOTAL CELLS COUNTED 100 CELL DIFF
[2017-02-19 12:02] LABS: VERIFY COUNTS? YES
[2017-02-19 12:10] LABS: ANISOCYTOSIS 1+; POLYCHROMASIA 1+
[2017-02-19 12:11] LABS: HYPOCHROMIA 1+
[2017-02-19 13:21] VITALS: BP 95/46
[2017-02-19 13:41] VITALS: BP 92/43
[2017-02-19 15:16] VITALS: BP 92/46
[2017-02-19 15:59] VITALS: BP 93/47
== END 2017-02-19 17:58 | disposition home or self-care (01) ==
LOC: ED 09:48
DX: C56.9 Malignant neoplasm of unspecified ovary (principal); C77.9 Secondary and unspecified malignant neoplasm of lymph node, unspecified; D63.0 Anemia in neoplastic disease; N30.01 Acute cystitis with hematuria; E07.9 Disorder of thyroid, unspecified; Z85.43 Personal history of malignant neoplasm of ovary; Z87.891 Personal history of nicotine dependence
CPT/HCPCS: 36415; 36430; 80048; 81001; 85025; 85610; 85730; 86850; 86900; 86923; 87077; 87086; 87186; 99285; P9016